=== PATIENT | male | born 1945 | race Caucasian/White ===

== ENCOUNTER 2018-09-23 07:26 | Observation (INO) | payer MEDICARE ==
--- NOTE | 2018-09-10 07:25 | HP ---
CC: Dr. David Copeland * HISTORY AND PHYSICAL: DATE OF PLANNED ADMISSION AND SURGERY: 09/23/18 HISTORY OF PRESENT ILLNESS: Mr. Castro is a 73-year-old white male who is admitted with bladder outlet obstruction, prostate enlargement for transurethral resection of the prostate. I have been following Mr. Castro for the last 3 years because of voiding symptoms consisting of day frequency every hour, slow stream, hesitancy, episodes of urgency and feeling of incomplete bladder emptying. He, however, has nocturia only once or twice. He denies any episodes of urinary incontinence. He denies any episodes of gross hematuria or urinary tract infections. At his initial evaluation in my office, he was noted to have a moderately enlarged prostate, and a large postvoid residual of almost 400 cc. The patient was started on tamsulosin and on finasteride. There was improvement in his voiding with his postvoid residual down to about 200 cc. He , however, continued to have significant symptoms especially with the day frequency. He had a cystoscopy 2 years ago, which showed only a moderately obstructing prostate. Urodynamic studies done at that time showed an over compliant bladder with a weak detrusor contraction suggestive of element of flaccid neurogenic bladder. He was then advised observation and to hold off prostatectomy, and to continue on the medical treatment with Flomax and Proscar. On his recent visit to my office, he continued to have the bothersome voiding symptoms. Repeat urodynamic studies showed again an over compliant bladder. He was able to generate about 40 cm of detrusor voiding pressure. I had a long discussion with the patient regarding that finding. He does have an element of a flaccid bladder with impaired detrusor contraction and he understand that this cannot be improved on by any medications. We, however, can decrease the outflow resistance by performing a TURP. He also understands that the TURP might not correct his symptoms; however, it might also improve them. PAST MEDICAL HISTORY AND SYSTEM REVIEW: The patient is overall healthy. He is hypertensive, controlled on nifedipine 30 mg daily and on losartan 100 mg daily. He takes Xanax as needed for sleep. He denies any cardiac or pulmonary diseases or symptoms. ALLERGIES: He reports having intolerance with lisinopril giving him cough, Ambien giving him sleep disorder, and VESIcare giving him tachycardia. FAMILY HISTORY: Negative. SOCIAL HISTORY: He is a nonsmoker. He denies any recreational drug use. PHYSICAL EXAMINATION GENERAL: Moderately overweight, otherwise healthy-looking white male. VITAL SIGNS: Blood pressure 140/80, pulse of 60. LUNGS: Clear. HEART: Regular and rhythmic. No murmurs. ABDOMEN: Soft. No masses, no tenderness, and no CVA tenderness. EXTERNAL GENITALIA: Normal. RECTAL: Exam showed an enlarged, but non-suspicious prostate. IMPRESSION: 1. Bladder outlet obstruction with a moderately enlarged prostate and an elevated postvoid residual of about 200 cc while on finasteride and on tamsulosin. 2. 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 3. Hypertension, well controlled. PLAN: Plan is for transurethral resection of the prostate. As described earlier, the patient understands that he might not significantly benefit from the procedure; however, it might well help him improve his bladder emptying and decrease the marked day frequency he has. I also discussed the other option of intermittent self catheterization, but the patient preferred trying the TURP. Some of the potential complications including infection, hematuria, urethral stricture and persistent symptoms were discussed. All his questions were answered. [id number]/[facility] #: [id number] JUSTYNA
[~2018-09-23 07:26] MED LIST: Buffered Lidocaine 1% SYRIN* 1 ML/SYRINGE INTRADERM ONE; Lactated Ringers 1000 ML Bag* 1,000 ML IV SCH
[2018-09-23] MEDS ORDERED: cefTRIAXone(*) 2 GM ADDV.VIAL IVPB ONE (07:50)
[2018-09-23] MEDS ORDERED: Propofol* 10 MG/ML 20 ML BTL ONE (09:22)
[2018-09-23] MEDS ORDERED: Midazolam* 1 MG/ML 2 ML VIAL (2 MG) ONE (09:22)
[2018-09-23] MEDS ORDERED: fentaNYL* 50 MCG/ML 2 ML VIAL (100 MCG VIAL) ONE ×3 (09:22→12:00)
[2018-09-23] MEDS ORDERED: Dexamethasone IV* 4 MG/ML 1 ML (4 MG) ONE (09:51)
[2018-09-23] MEDS ORDERED: Ondansetron INJ* 2 MG/ML VIAL ONE (10:35)
[2018-09-23] MEDS ORDERED: oxyCODONE/Acetamin 5/325 MG* TAB PO PRN ×2 (12:10→13:55)
[2018-09-23] MEDS ORDERED: Ondansetron INJ* 2 MG/ML VIAL IV PRN (12:10)
[2018-09-23] MEDS ORDERED: Naloxone* 0.4 MG/ML 1 ML VIAL IV PRN (12:10)
[2018-09-23] MEDS ORDERED: HYDROmorphone INJ1* 1 MG/ML SYRINGE IV PRN (12:10)
[2018-09-23] MEDS ORDERED: fentaNYL* 50 MCG/ML 2 ML VIAL (100 MCG VIAL) IV PRN (12:10)
[2018-09-23] MEDS: Lactated Ringers 1000 ML Bag* 1,000 ML IV SCH ×2 (12:45→19:16)
--- NOTE | 2018-09-23 13:29 | OP ---
CC: Dr. Justino Copeland OPERATIVE REPORT: DATE OF OPERATION: 09/23/18 DATE OF : 47 SURGEON: Dr. Corey. ANESTHESIOLOGIST: Dr. Sourav Hernandez. ANESTHESIA: General. PRE-OP DIAGNOSES: 1. Bladder outlet obstruction. 2. Benign prostatic hyperplasia. POST-OP DIAGNOSES: 1. Bladder outlet obstruction. 2. Benign prostatic hyperplasia. OPERATIVE PROCEDURE: 1. Cystoscopy. 2. Transurethral resection of the prostate. INDICATION FOR PROCEDURE: Mr. Castro is a 73-year-old white male who has a long history of prostate enlargement and bladder outlet obstruction with an elevated post-void residual of about 300 cc. Cystoscopy showed a large obstructing prostate. Urodynamic studies, however, showed voiding detrusor pressure in the vicinity of 40 mL/water, indicating an element of impaired detrusor contractions. The patient had been maintained on tamsulosin and on finasteride, and he continued to be symptomatic with an elevated post-void residual. Considering the above history and the fact that the detrusor function cannot be improved and after discussing the options of management, TURP was advised and accepted. The patient understood that the procedure might not improve his bladder emptying considering his relative diminished detrusor function. PATHOLOGY AT CYSTOSCOPY: The penile and bulbar urethrae looked normal. The prostatic urethra measured about 3.5 cm in length and there was significant degree of obstruction by bilobar hyperplasia of the prostate. Examination of the bladder showed normal ureteral orifices. There was moderate degree of bladder trabeculations. No suspicious bladder lesions were seen. No calculi or diverticula were noted. The prostate adenoma was vascular. DESCRIPTION OF PROCEDURE: After successful general anesthesia, the patient was placed in the lithotomy position and was prepped and draped for a cystoscopy. Cystoscopy was performed. The bladder was carefully inspected and above findings were noted. The resectoscope was then introduced inside the bladder. Mannitol-sorbitol solution was used for irrigation and inflow and outflow were adjusted to avoid over distention of the bladder. The relative small medial lobe and the lateral lobes protruding inside the bladder neck were then resected circumferentially. The resectoscope was then positioned in the mid-prostatic urethra and the prostate adenomatous tissue was resected circumferentially allowing the visualization of the bladder neck. The resectoscope was then positioned at the level of the veru. The left lobe was resected starting at 5 o'clock and proceeding anteriorly. The right lobe was resected next. There was a fair amount of anterior tissue that was resected. The limits of the resection were the bladder neck proximally, the veru distally and the capsule circumferentially. The bleeders were electrocoagulated and controlled through the procedure. There was still adenomatous tissue remaining, especially in the apical area, but however, it was none obstructing. At the completion of the resection, the prostatic urethra was wide open. Good hemostasis was achieved. The external sphincter, the veru, the capsule, the bladder wall, and the urethral orifices were all intact. After irrigating all the prostate chips out and making sure that hemostasis is good, the resectoscope was removed, a 22-Cymro Booth catheter was passed inside the bladder and the balloon inflated with 40 cc of water. The catheter was then placed on gentle traction and taped to the right thigh of the patient. Irrigation yielded clear returns. The patient tolerated the procedure well and left the operating room in good condition. The blood loss was estimated at about 100 cc. The specimen was prostate chips. [id number]/[facility] #: [id number] [facility]OSPITALJoslyn
[2018-09-23] MEDS ORDERED: Lidocaine 2% JELLY* 6 ML JELLY TOPICAL PRN (13:56)
[2018-09-23] MEDS ORDERED: Oxybutynin TAB* 5 MG ONE (15:28)
[2018-09-23] MEDS: Oxybutynin TAB* 5 MG PO PRN ×2 (15:32→22:21)
[2018-09-23] MEDS ORDERED: ALPRAZolam TAB* 0.5 MG PO SCH (21:00)
[2018-09-24] MEDS: Lactated Ringers 1000 ML Bag* 1,000 ML IV SCH (01:52)
[2018-09-24 07:25] VITALS: BP 143/70
[2018-09-24] MEDS ORDERED: cefTRIAXone(*) 1 GM in NS 0.9% 50 ML* 50 ML IVPB ONE (07:30)
--- NOTE | 2018-09-24 08:51 | DS ---
DISCHARGE SUMMARY: DATE OF ADMISSION: 09/23/18 DATE OF DISCHARGE: 09/24/18 FINAL DIAGNOSES: 1. Bladder outlet obstruction. 2. Benign prostatic hyperplasia. OPERATION: 1. Cystoscopy. 2. Transurethral resection of the prostate. HISTORY: Mr. Castro is a 73-year-old white male who has a long history of bladder outlet obstruction with a slow stream, hesitancy, day frequency, and incomplete bladder emptying. His symptoms did not significantly improve on finasteride and tamsulosin. Cystoscopy showed an obstructing prostate with bladder trabeculations. Urodynamic studies showed an element of impaired detrusor contraction with a voiding detrusor pressure at 40 cm of water. His postvoid residual was 300 cc. Because of the above history and the size of the prostate and although the detrusor function was not felt to be optimal, a TURP was advised with the expectation it will improve his symptoms and his bladder emptying. PAST MEDICAL HISTORY AND SYSTEM REVIEW: The patient is hypertensive, well controlled on nifedipine 30 mg daily and on losartan 100 mg daily. He denies any cardiac or pulmonary diseases or symptoms. He is a nonsmoker. He reports having intolerance to lisinopril that causes him coughing and had also intolerance to Ambien and to VESIcare. His family history is negative. His preoperative physical exam was within normal and the rectal exam showed an enlarged but nonsuspicious prostate. Preoperative lab work was all within normal. COURSE IN HOSPITAL: The patient was admitted on the morning of his surgery. He underwent an uncomplicated transurethral resection of the prostate under general anesthesia. He was observed overnight. His urine remained clear. His vital signs were normal, and he was ambulating freely. He was instructed regarding the care of the Booth catheter. He was discharged home in good condition with normal vital signs on catheter drainage. He will be seen in the office in 5 days for Booth catheter removal. Pathology showed benign prostate tissue [id number]/[facility] #: [id number] [facility]ITALJoslyn
[2018-09-24] MEDS ORDERED: Finasteride TAB* 5 MG PO SCH (09:00)
[2018-09-24] MEDS ORDERED: NIFEdipine ER TAB* 30 MG PO SCH (09:00)
[2018-09-24] MEDS ORDERED: Losartan TAB* 25 MG PO SCH (09:00)
== END 2018-09-24 09:45 | disposition home or self-care (01) ==
LOC: OR 07:26 → SSU 13:20
PROVIDERS: ADMIT Urology; ATTEND Urology
DX: N40.0 Benign prostatic hyperplasia without lower urinary tract symptoms (principal); N32.0 Bladder-neck obstruction; I10 Essential (primary) hypertension
CPT/HCPCS: 88305; 96372; 96374; 96375; A9270-GY; G0378; J0696; J1100; J2250; J2405; J2704; J3010